=== PATIENT | female | born 1990 | race Caucasian/White ===

== ENCOUNTER → 2017-09-07 16:36 | Outpatient (CLI) | payer OTHER, SELFPAY ==
[2017-09-07 17:33] LABS: Urine Amphetamines Negative (Negative); Urine Barbiturates Negative (Negative); Urine Benzodiazepines Negative (Negative); Urine Cocaine Negative (Negative); Urine MDMA Negative (Negative); Urine Methadone Negative (Negative); Urine Methamphetamines Negative (Negative); Urine Morphine/Opi cutoff 2000 Positive (Negative); Urine Oxycodone Negative (Negative); Urine Phencyclidine Negative (Negative); Urine Tetrahydrocannabinol Negative (Negative); Urine Tricyclic Antidepressant Negative (Negative)
[2017-09-07 18:05] LABS: Add Manual Diff / Slide Review NO; Basophils Percent Auto 0.6 % (0-2); Eosinophils Percent Auto 0.7 % (2-4); Hematocrit 37.3 % (36-46); Hemoglobin 12.8 g/dL (12.0-16.0); Lymphocytes Percent Auto 20.2 % (25-40); Mean Corpuscular HGB Conc 34.3 % (30-36); Mean Corpuscular Hemoglobin 32.1 PG (26-34); Mean Corpuscular Volume 93.5 fL (80-100); Monocytes Percent Auto 7.1 % (3-14); Neutrophils Absolute Auto 8800 /uL (3000-5900); Neutrophils Percent Auto 71.4 % (50-75); Platelet Count 314 X10^3/uL (150-400); Red Blood Cell Count 3.99 X10^6/uL (4.0-5.2); Red Cell Distribution Width 12.7 % (11.6-14.8); White Blood Cell Count 12.4 X10^3/uL (4.5-11.0)
[2017-09-07 18:16] LABS: Free T4, Direct Thyroxine 1.17 ng/dL (0.78-2.19)
[2017-09-07 18:29] LABS: Thyroid Stimulating Hormone 0.78 uIU/mL (0.47-4.68)
[2017-09-07 18:31] LABS: Hepatitis B Surface Antigen NEGATIVE s/c (NEGATIVE)
[2017-09-13 12:20] LABS: Rapid Plasma Reagin NON-REACTIVE
== END ==
PROVIDERS: PCP Physician Assistant; Visit Provider Obstetrics & Gynecology
DX: Z34.91 Encounter for supervision of normal pregnancy, unspecified, first trimester (principal); E04.9 Nontoxic goiter, unspecified
CPT/HCPCS: 36415; 80055; 80305; 84439; 84443; 86787; 86850; 86900; 86901

== ENCOUNTER → 2017-09-09 10:36 | Outpatient (CLI) | payer OTHER, SELFPAY ==
[2017-09-13 17:15] LABS: HIV 1 and 2 Antibody NEGATIVE (NEGATIVE); Hep C Virus Ab w/Reflex Quant NEGATIVE s/c (NEGATIVE)
== END ==
PROVIDERS: PCP Physician Assistant; Visit Provider Obstetrics & Gynecology
DX: Z34.91 Encounter for supervision of normal pregnancy, unspecified, first trimester (principal)
CPT/HCPCS: 80361; 86703; 86803

== ENCOUNTER → 2017-11-14 14:58 | Outpatient (CLI) | payer OTHER, SELFPAY ==
--- NOTE | 2017-11-14 15:00 | DI.US.S_ITS ---
PROCEDURE: US OB >= 14 WEEKS FETUS INDICATIONS: Anatomy Survey OUTSIDE/PRIOR DATING DATA: Last menstrual period (LMP): 06/23/2017. LMP-based estimated date of delivery (TIFFANIE): 03/30/2018. First dating scan (date and location): 09/07/2017. Estimated date of delivery (TIFFANIE) from first dating scan: 04/05/2018. TECHNIQUE: Real-time scanning was performed of the fetus, with image documentation and biometric measurements. Endovaginal scanning: Not required COMPARISON: [facility], , OB >= 14 WEEKS FETUS, 10/05/2017, 17:04. FINDINGS: General: A single living intrauterine gestation is present. Presentation: Vertex. Placenta: Placental position is right anterior, without previa. Amniotic fluid index: 14.7 cm, normal range is 5-24 cm. heart rate: 131 beats per minute. Maternal cervical canal: 3.9 cm long. Normal lower limit is 2.5 cm. biometrics: Biparietal diameter: 20.0 weeks Head circumference: 19 weeks 4 days Abdominal circumference: 19 weeks 4 days Femur length: 19 weeks 6 days Estimated gestational age from initial scan: 19 weeks 5 days Composite gestational age from present scan: 19 weeks 5 days, normal growth Estimated weight and percentile: 311 g the 48th percentile Measurement variability for biometric dating: +/- 7 days from 14 weeks to 15 weeks 6 days gestation, +/- 10 days from 16 weeks to 21 weeks 6 days gestation, +/- 2 weeks from 22 weeks to 27 weeks 6 days gestation, +/- 3 weeks for 28 weeks gestation or later. weight reference: 4500 g or EFW >90/95% is considered macrosomia or large for gestational age. EFW <10% is small for gestational age. EFW 5% or less is considered intra-uterine growth restriction. Anatomic survey: Neuro: Ventricles are non-dilated at less than 10 mm. Cisterna magna is normal at 3-11 mm. Cerebellum is normal in size and morphology. Nuchal skin fold: Normal at less than 6 mm between 14-21 weeks gestational age. Face: Nose and lips, facial profile are normal. Spine: No evidence for spina bifida. Heart: 4-chambered heart is present, with normal ventricular outflow tracts. Diaphragm: Diaphragm is intact. Stomach: Left-sided stomach is present. Kidneys: No hydronephrosis. Normal is less than 5 mm in 2nd trimester, less than 7 mm in 3rd trimester. Cord: 3-vessel cord has orthotopic insertion. Bladder: Normal in size. Extremities: All 4 extremities identified. IMPRESSION: Single, live intrauterine gestation in Vertex lie showing composite gestational age of 19 weeks 5 days, normal growth and normal anatomy. Dictated by: Boby Gilliland M.D. on 11/14/2017 at 16:15 Approved by: Boby Gilliland M.D. on 11/14/2017 at 16:18
== END ==
PROVIDERS: PCP Physician Assistant; Visit Provider Obstetrics & Gynecology
DX: Z34.02 Encounter for supervision of normal first pregnancy, second trimester (principal); Z3A.19 19 weeks gestation of pregnancy
CPT/HCPCS: 76811

== ENCOUNTER → 2017-12-26 15:45 | Outpatient (CLI) | payer OTHER, SELFPAY ==
[2017-12-26 17:13] LABS: Hematocrit 33.2 % (36-46); Hemoglobin 11.1 g/dL (12.0-16.0)
[2017-12-26 17:41] LABS: GTT (PREG) 1 Hour PP 50gm Dose 140 mg/dL (76-139)
== END ==
PROVIDERS: PCP Physician Assistant; Visit Provider Obstetrics & Gynecology
DX: Z34.02 Encounter for supervision of normal first pregnancy, second trimester (principal)
CPT/HCPCS: 36415; 82950; 85014; 85018

== ENCOUNTER 2018-02-06 09:29 | Observation (INO) | payer OTHER, SELFPAY ==
[2018-02-06 11:51] LABS: Fetal Fibronectin Negative
[2018-02-06 12:08] LABS: Appearance Urine UA CLOUDY; Bilirubin Urine UA NEGATIVE (NEGATIVE); Color Urine UA YELLOW; Glucose Urine UA NEGATIVE (Normal); Ketones Urine UA NEGATIVE (NEGATIVE); Leukocyte Esterase Urine UA NEGATIVE (NEGATIVE); Nitrite Urine UA NEGATIVE (Negative); Occult Blood Urine UA NEGATIVE (Negative); Protein Urine UA NEGATIVE (Negative); Urobilinogen Urine UA 0.2 E.U./dL (0.2)
== END 2018-02-06 12:20 | disposition home or self-care (01) ==
PROVIDERS: Admitting Provider Obstetrics & Gynecology; PCP Physician Assistant; Visit Provider Obstetrics & Gynecology
DX: Z34.83 Encounter for supervision of other normal pregnancy, third trimester (principal); Z3A.32 32 weeks gestation of pregnancy
CPT/HCPCS: 59025; 59050; 81003; 82731; G0378; G0379

== ENCOUNTER → 2018-03-01 17:05 | Outpatient (CLI) | payer OTHER, SELFPAY ==
[2018-03-02 14:49] LABS: Strep Grp B PCR NEG for Grp B Strep
== END ==
PROVIDERS: PCP Physician Assistant; Visit Provider Obstetrics & Gynecology
DX: Z34.83 Encounter for supervision of other normal pregnancy, third trimester (principal); Z3A.35 35 weeks gestation of pregnancy
CPT/HCPCS: 87653

== ENCOUNTER 2018-03-10 12:20 | Outpatient (CLI) | payer OTHER, SELFPAY | END 2018-03-10 14:05 | disposition home or self-care (01) | LOC: LABOR 13:02 → OB 03-14 08:50 | PROVIDERS: PCP Physician Assistant; Visit Provider Obstetrics & Gynecology | DX: Z34.83 Encounter for supervision of other normal pregnancy, third trimester (principal); Z3A.32 32 weeks gestation of pregnancy | CPT/HCPCS: 59025; 59050; G0378; G0379 ==

== ENCOUNTER 2018-04-01 13:09 | Observation (INO) | payer OTHER, SELFPAY ==
--- NOTE | 2018-04-01 14:08 | DI.US.S_ITS ---
PROCEDURE: US OB LIMITED INDICATIONS: ANA OUTSIDE/PRIOR DATING DATA: Last menstrual period (LMP): 06/23/17. LMP-based estimated date of delivery (TIFFANIE): 03/30/18. First dating scan (date and location): 09/07/17. Estimated date of delivery (TIFFANIE) from first dating scan: 04/05/18. TECHNIQUE: Real-time scanning was performed of the fetus, with image documentation. COMPARISON: [facility], , US OB >= 14 WEEKS FETUS, 11/14/2017, 15:11. [facility], , US OB >= 14 WEEKS FETUS, 10/05/2017, 17:04. [facility], , US OB >= 14 WEEKS FETUS, 09/07/2017, 16:26. [facility], , US OB >= 14 WEEKS FETUS, 01/24/2018, 15:49. FINDINGS: A single living intrauterine gestation is present. Presentation: Vertex. Placenta: Placental position is anterior grade 3, without previa. Amniotic fluid index: 11.9 cm, normal range is 5-24 cm. heart rate: 114 beats per minute. Maternal cervical canal: Not measured cm long. Normal lower limit is 2.5 cm. Estimated gestational age from initial scan: 39 weeks 3 days. IMPRESSION: Single live intrauterine with ultrasound gestational age of 39 weeks 3 days. ANA measures 11.9 cm, corresponding to 45%. Dictated by: Aline Walton M.D. on 04/01/2018 at 15:25 Approved by: Aline Walton M.D. on 04/01/2018 at 15:27
== END 2018-04-01 15:35 | disposition home or self-care (01) ==
PROVIDERS: Admitting Provider Obstetrics & Gynecology; PCP Physician Assistant; Visit Provider Obstetrics & Gynecology
DX: Z34.83 Encounter for supervision of other normal pregnancy, third trimester (principal); Z3A.40 40 weeks gestation of pregnancy
CPT/HCPCS: 59025; 59050; 76815; 84112; G0378; G0379

== ENCOUNTER 2018-04-05 14:16 | Outpatient (CLI) | payer OTHER, SELFPAY | END 2018-04-05 15:36 | disposition home or self-care (01) | LOC: LABOR 15:17 → OB 04-12 08:37 | PROVIDERS: PCP Physician Assistant; Visit Provider Obstetrics & Gynecology | DX: O48.0 Post-term pregnancy (principal); Z3A.40 40 weeks gestation of pregnancy | CPT/HCPCS: 59025; G0378; G0379 ==

== ENCOUNTER 2018-04-07 11:56 | Observation (INO) | payer OTHER, SELFPAY | END 2018-04-07 14:52 | disposition home or self-care (01) | PROVIDERS: Admitting Provider Obstetrics & Gynecology; PCP Physician Assistant; Visit Provider Obstetrics & Gynecology | DX: O48.0 Post-term pregnancy (principal); O32.1XX0 Maternal care for breech presentation, not applicable or unspecified; Z3A.41 41 weeks gestation of pregnancy | CPT/HCPCS: 59025; 59050; G0378; G0379 ==

== ENCOUNTER 2018-04-08 13:58 | Inpatient (IN) | payer OTHER, SELFPAY ==
[2018-04-08] MEDS: LACTATED RINGERS 1,000 ML 125 ML IV (14:10)
--- NOTE | 2018-04-08 15:00 | P.HPOB_ITS ---
OB HPI Date/Time Date of admission: 04/08/18 Date Patient Seen: 04/08/18 Time Patient Seen: 14:58 History of Present Condition Chief complaint: Observation : 2 Para: 0 Estimated Date of Delivery: 03/30/18 Estimated Gestational Age (weeks): 41+ 2 Narrative: Aracely Ortiz is a 27 year old female 2 para 0 at 41-,2/7 weeks gestation in active labor History of Present care: good care, initiated at week # (10) and number of visits (14) Dating criteria: LMP confirmed by 1st trimester US Ultrasounds: normal 1st trimester US and normal mid trimester US Obstetrical complications: none Medical complications: none Preadmission Labs Blood type: O (+) positive -: Antibody screen: negative, GBS status: negative, HBsAG: negative, HIV: negative, HSV 1: negative, HSV 2: negative and RPR/VDLR: negative -: Chlamydia screen: not detected and Gonorrhea screen: not detected -: Rubella: immune and Varicella: immune HCT: 33.2 HCAB: negative PAP: Normal 1 hr GTT: 140 Evaluation Evaluation Baseline heart rate: 140 Variability: Moderate (11-25) monitor accelerations: Present monitor decelerations: Absent Contraction Frequency (minutes): 2 Uterine Contraction Intensity: Strong/Firm Category of Tracing: I Cervical dilation (cm): 6 Cervical effacement (%): 100 station: 0 [facility] Home Medications Medication Instructions Recorded Confirmed Type ondansetron 4 mg disintegrating 4 mg PO Q6H PRN #20 tab 18 09/07/17 Rx tablet fluconazole 150 mg tablet 150 mg PO ONCE #1 tab 12/21/17 Rx Allergies Allergy/AdvReac Type Severity Reaction Status Date / Time No Known Drug Allergies Allergy Verified 04/07/18 12:10 Exam Vital Signs (past 8 hours): Generally: Moderate distress secondary to contractions Lungs: Clear to auscultation bilaterally Cardiovascular: Regular rate and rhythm Abdomen: Soft and flat. Good bowel sounds Fundal height: 38 cm Estimated weight: 6 and 0.5 lb Extremities: Negative Homans, no edema Assessment and Plan (1) 41 weeks gestation of : Current visit: Yes Status: Acute (2) Active labor: Current visit: Yes Status: Acute Assessment: 27-year-old 2 para 0 at 41-,2/7 weeks gestation in active labor Desires an epidural Plan: Epidural Artificial rupture of membranes once comfortable Expected management to spontaneous vaginal delivery
[2018-04-08 15:10] LABS: Add Manual Diff / Slide Review NO; Basophils Percent Auto 1.1 % (0-2); Hematocrit 32.2 % (36-46); Hemoglobin 10.8 g/dL (12.0-16.0); Lymphocytes Percent Auto 13.8 % (25-40); Mean Corpuscular HGB Conc 33.5 % (30-36); Mean Corpuscular Hemoglobin 29.4 PG (26-34); Mean Corpuscular Volume 87.6 fL (80-100); Monocytes Percent Auto 4.5 % (3-14); Neutrophils Absolute Auto 10200 /uL (1500-7000); Neutrophils Percent Auto 80.6 % (50-75); Platelet Count 335 X10^3/uL (150-400); Red Blood Cell Count 3.67 X10^6/uL (4.0-5.2); Red Cell Distribution Width 14.3 % (11.6-14.8); White Blood Cell Count 12.6 X10^3/uL (4.5-11.0)
[2018-04-08] MEDS: LACTATED RINGERS 1,000 ML 100 ML IV (16:42)
[2018-04-08] MEDS: OXYTOCIN PREMIX 30 UNIT/500 ML PLAST..BAG IV (16:49)
[2018-04-08] MEDS: ONDANSETRON 4 MG/2 ML INJ IV (17:26)
[2018-04-08] MEDS: CEFAZOLIN 1 GM/50 ML FROZ.PIGGY IV (21:11)
--- NOTE | 2018-04-08 21:45 | SUR.OPER ---
Supine on Padded OR bed, head on pillow, safety belt at thigh, arms secured on padded arm boards at <90 degrees abduction. Bump under right buttock. Legs uncrossed with pillow under knees, gel pad to heels, tape over blanket to lower legs.
--- NOTE | 2018-04-08 21:49 | SUR.OPER ---
Viable female delivered at 2120. Placenta and cord blood sent with Labor and Delivery nurse.
--- NOTE | 2018-04-08 22:02 | PM.GYNOP.1 ---
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 Maternal short stature Post-op diagnosis: same Procedure: Procedures Operation Date: 04/08/18 09:00 Actual Procedures Side Surgeon p Section Mami Mata MD Indications: Term intrauterine 41 weeks Maternal short stature Cephalopelvic disproportion fair to progress Surgeon: Mami Mata Mathematics Improvement Teacher: Junito Odell Anesthesia Type: Epidural Operative Notes Closure Type: primary Specimen(s): none Applied: catheter Estimated blood loss (mL): 500 Blood products transfused: none Procedure in detail: The patient is placed supine upon the operating table in the epidural was reinforced in the standard fashion. Patient was then draped and prepared in the usual fashion. Transverse incision was then made and subcutaneous tissue incised the fascia. Fascia was incised sharp knife transversely in each direction. The median raphe was incised the midline and this was widened by blunt finger dissection. Perineum was picked up and incised and widened by blunt finger dissection. Bladder blade was set in place. Peritoneum over the lower uterine segment was picked up and incised. Bladder was taken down and bladder blade replaced. Transverse scoring incision was made across the lower uterine segment a perforating was is in was made centrally. The endometrial cavity was opened and a live-born female infant scores of nine one and nine at 5 min was delivered without difficulty. Placenta was delivered manually. Cord had three vessels. All membranes were massage from the endometrial cavity. The estimated blood loss was 500 cc. Tubes and ovaries appeared to be normal. The uterine incision was closed in imbricating fashion using two layer technique with 1. Chromic suture. No bleeding points were seen visceral peritoneum was closed with a three 0 Vicryl suture. The parietal perineum was closed with a continuous three 0 Vicryl suture. Subcutaneous tissues copiously irrigated as was the retroperitoneal space. The fascia was closed with two continuous 1. Vicryl sutures. The subcutaneous tissue was closed in two layers. 1st with interrupted three 0 Vicryl suture then with a running horizontal mattress three 0 Vicryl suture and further approximated with Steri-Strips. Complications: none Post-operative Condition: stable Disposition: PACU Plan for aftercare: Return to Labor and delivery
[2018-04-08 22:04] VITALS: BP 110/77; PULSE 103; RESP 16; TEMP 37.3; O2SAT 100
[2018-04-08 22:09] VITALS: BP 106/73; PULSE 94; RESP 16; O2SAT 100
[2018-04-08 22:15] VITALS: BP 108/78; PULSE 91; RESP 16; TEMP 36.7; O2SAT 100
[2018-04-09] MEDS: KETOROLAC 30 MG/ML VIAL IV ×4 (01:07→18:00)
[2018-04-09] MEDS: CITRIC ACID/SODIUM CITRATE 15 ML SOLUTION 30 ML PO (01:14)
[2018-04-09 05:52] LABS: Hemoglobin 7.8 g/dL (12.0-16.0)
[2018-04-09 06:01] LABS: Hematocrit 23.9 % (36-46)
[2018-04-09] MEDS: LACTATED RINGERS 1,000 ML 125 ML IV (06:28)
--- NOTE | 2018-04-09 09:37 | P.PNOB_ITS ---
Subjective - OB Interval history: Patient is a 27-year-old status post primary section for cephalopelvic disproportion and failure to progress. She continues on IV use. Feliciano is in place and draining clear urine. She has minimal vaginal bleeding. Patient comments: no complaints and pain well controlled baby status: doing well feeding status: exclusively breast feeding Narrative: Patient is doing well Date Patient Seen: 04/09/18 Time Patient Seen: 09:35 Exam Vital Signs (past 8 hours): Oxygen Delivery Method Room Air Narrative Exam Narrative: Fundus is U minus three Incision covered with a dressing but no evidence of bleeding or discharge of any kind Lochia scant Objective Labs Result Diagrams: 04/09/18 05:05 Labs: Laboratory Results - last 24 hr 04/08/18 04/08/18 04/09/18 14:50 14:50 05:05 WBC 12.6 H RBC 3.67 L Hgb 10.8 L 7.8 L Hct 32.2 L 23.9 L MCV 87.6 MCH 29.4 MCHC 33.5 RDW 14.3 Plt Count 335 Neut % (Auto) 80.6 H Lymph % (Auto) 13.8 L Peñuelas % (Auto) 4.5 Eos % (Auto) 0.0 L Baso % (Auto) 1.1 Neut # (Auto) 93354 H Blood Type O Positive Antibody Screen Negative Assessment & Plan (1) 41 weeks gestation of : Problem details: Patient approximately 12 hr post primary section doing well Anemia secondary to blood loss at surgery will receive iron therapy Plan progressive ambulation Status: Acute Current Visit: Yes (2) Active labor: Status: Acute Current Visit: Yes Time Spent With Patient Total time spent is greater than 50% in coordination of care (as documented) at patient's floor/unit and/or counseling patient: less than 15 minutes
[2018-04-09] MEDS: LANOLIN OINT 7 GM 1 APPLIC TOP (11:58)
[2018-04-09] MEDS: DOCUSATE 250 MG CAPSULE PO (12:03)
--- NOTE | 2018-04-09 12:26 | PM.PREOP ---
Pre-operative Note Interval Note Pre-op Check: Yes History & Physical exam performed today by Physician Changes: No
[2018-04-09 23:33] VITALS: BP 104/62
[2018-04-09] MEDS: OXYCODONE/ACETAMINOPHEN 5/325 TABLET 2 TAB PO (23:46)
[2018-04-09] MEDS: IBUPROFEN 600 MG TABLET PO (23:48)
[2018-04-10 06:11] VITALS: TEMP 37.1
[2018-04-10] MEDS: IBUPROFEN 600 MG TABLET PO (06:11)
[2018-04-10] MEDS: DOCUSATE 250 MG CAPSULE PO (09:34)
[2018-04-10] MEDS: OXYCODONE/ACETAMINOPHEN 5/325 TABLET 2 TAB PO (09:34)
[2018-04-10] MEDS: FERROUS GLUCONATE 324 MG TABLET PO (09:34)
[2018-04-10 10:42] VITALS: BP 114/71; PULSE 75; RESP 14; TEMP 37.2; O2SAT 99
[2018-04-10 11:02] VITALS: BP 114/71; PULSE 75; RESP 14; TEMP 37.2
== END 2018-04-10 12:05 | disposition home or self-care (01) | DRG 787 ==
PROVIDERS: Admitting Provider Obstetrics & Gynecology; PCP Physician Assistant; Visit Provider Obstetrics & Gynecology
PROC: 10D00Z1 Extraction of Products of Conception, Low, Open Approach (ICD-10-PCS; CPT 59514; principal; 2018-04-08 09:00)
DX: O33.9 Maternal care for disproportion, unspecified (principal); D62 Acute posthemorrhagic anemia; Z3A.41 41 weeks gestation of pregnancy; Z37.0 Single live birth; O62.2 Other uterine inertia
CPT/HCPCS: 01967; 01968; 36415; 59050; 59510; 59514; 85014; 85018; 85025; 86850; 86900; 86901; G0379; J1885; J2274; J2405; J2590; J3010

== ENCOUNTER → 2019-08-20 11:00 | Outpatient (CLI) | payer OTHER, SELFPAY ==
[2019-08-20 12:13] LABS: Add Manual Diff / Slide Review NO; Basophils Absolute Auto 0 /uL (0-100); Basophils Percent Auto 0.5 % (0-2); Eosinophils Absolute Auto 100 /uL (0-450); Eosinophils Percent Auto 1.1 % (2-4); Hematocrit 37.3 % (36-46); Hemoglobin 12.9 g/dL (12.0-16.0); Lymphocytes Absolute Auto 2200 /uL (1100-4500); Lymphocytes Percent Auto 22.6 % (25-40); Mean Corpuscular HGB Conc 34.7 % (30-36); Mean Corpuscular Hemoglobin 32.5 PG (26-34); Mean Corpuscular Volume 93.7 fL (80-100); Monocytes Absolute Auto 700 /uL (0-900); Monocytes Percent Auto 7.3 % (3-14); Neutrophils Absolute Auto 6700 /uL (1500-7000); Neutrophils Percent Auto 68.5 % (50-75); Platelet Count 303 X10^3/uL (150-400); Red Blood Cell Count 3.98 X10^6/uL (4.0-5.2); White Blood Cell Count 9.7 X10^3/uL (4.5-11.0)
[2019-08-20 12:29] LABS: Appearance Urine UA CLEAR; Bilirubin Urine UA NEGATIVE (NEGATIVE); Color Urine UA YELLOW; Glucose Urine UA NEGATIVE (Negative); Ketones Urine UA NEGATIVE (NEGATIVE); Leukocyte Esterase Urine UA TRACE (NEGATIVE); Nitrite Urine UA NEGATIVE (Negative); Occult Blood Urine UA NEGATIVE (Negative); Protein Urine UA NEGATIVE (Negative); Specific Gravity Urine UA 1.025 (1.000-1.035); Urobilinogen Urine UA 0.2 E.U./dL (0.2)
[2019-08-20 12:31] LABS: pH Urine UA 5.5 (4.5-8.0)
[2019-08-20 12:36] LABS: Bacteria Urine Occasional (0-1); Mucus Urine 1+ (Negative); RBC Urine 0-1/HPF (0-5/HPF); Squamous Epithelial Cell Urine 0-1 /HPF (0-5/HPF); WBC Urine 0-1/HPF (0-5/HPF)
[2019-08-20 21:45] LABS: Hepatitis B Surface Antigen NEGATIVE s/c (NEGATIVE)
[2019-08-20 21:48] LABS: HIV 1 & 2 Ab/Ag 4th Gen Combo NEGATIVE (NEGATIVE); Hep C Virus Ab w/Reflex Quant NEGATIVE s/c (NEGATIVE)
[2019-08-21 04:33] LABS: RPR Screen Non Reactive (Non Reactive)
[2019-08-21 05:08] LABS: Varicella IgG Antibody 583 index (Immune >165)
[2019-08-24 08:08] LABS: Chlamydia trachomatis Negative (Negative); Mycoplasma genitalium Negative (Negative); Neisseria gonorrhoeae Negative (Negative)
== END ==
PROVIDERS: PCP Physician Assistant; Referring Provider Obstetrics & Gynecology; Visit Provider Obstetrics & Gynecology
DX: Z34.81 Encounter for supervision of other normal pregnancy, first trimester (principal); Z11.3 Encounter for screening for infections with a predominantly sexual mode of transmission
CPT/HCPCS: 36415; 80055; 81003; 81015; 86787; 86803; 86850; 86900; 86901; 87086; 87389; 87491; 87591

== ENCOUNTER → 2019-10-15 16:23 | Outpatient (CLI) | payer OTHER, SELFPAY ==
[2019-10-17 20:43] LABS: AFP, Serum 45.9 ng/mL (.); Estriol, Free 1.95 ng/mL (.); Inhibin A, Dimeric 225.51 pg/mL (.); Inhibin A, MoM 0.99 (.); Maternal Ethnicity Caucasian (.); Maternal Weight 96 lbs (.); Number of Fetuses No (.); OSBR Risk 1 IN 10000 (.); Results Report (.); Test Results *Screen Negative* (.); hCG, MoM 0.53 (.); hCG, Serum 30847 mIU/mL (.)
== END ==
PROVIDERS: Referring Provider Obstetrics & Gynecology; Visit Provider Obstetrics & Gynecology
DX: Z34.82 Encounter for supervision of other normal pregnancy, second trimester (principal); Z3A.16 16 weeks gestation of pregnancy
CPT/HCPCS: 36415; 82105; 82677; 84702; 86336

== ENCOUNTER → 2019-10-23 14:37 | Outpatient (CLI) | payer OTHER, SELFPAY ==
[2019-10-26 13:36] LABS: COVID19 Sendout Not Detected (Not Detected)
== END ==
PROVIDERS: Visit Provider Physician Assistant
DX: Z20.828 Contact with and (suspected) exposure to other viral communicable diseases (principal)
CPT/HCPCS: 87635

== ENCOUNTER → 2019-11-08 15:47 | Outpatient (CLI) | payer OTHER, SELFPAY ==
--- NOTE | 2019-11-08 15:48 | DI.US.S_ITS ---
PROCEDURE: US OB >= 14 WEEKS FETUS INDICATIONS: 20 WEEK ANATOMY SCAN OUTSIDE/PRIOR DATING DATA: Last menstrual period (LMP): 06/24/19. LMP-based estimated date of delivery (TIFFANIE): 03/30/20 . First dating scan (date and location): 08/20/19 . Estimated date of delivery (TIFFANIE) from first dating scan: 03/30/20 . TECHNIQUE: Real-time scanning was performed of the fetus, with image documentation and biometric measurements. Endovaginal scanning: Not performed COMPARISON: Ultrasound dated 08/20/19 and 08/13/19 FINDINGS: General: A single living intrauterine gestation is present. Presentation: Vertex. Placenta: Placental position is anterior , without previa. Amniotic fluid index: 11.9 cm, normal range is 5-24 cm. heart rate: 145 beats per minute. Maternal cervical canal: 5.6 cm long. Normal lower limit is 2.5 cm. biometrics: Biparietal diameter: 4.7 cm, 20 weeks 3 days Head circumference: 18.2 cm, 20 weeks 4 days Abdominal circumference: 15.4 cm, 20 weeks 4 days Femur length: 3.4 cm, 20 weeks 5 days Estimated gestational age from initial scan: 19 weeks 4 days Composite gestational age from present scan: 20 weeks 4 days Estimated weight and percentile: 368 g, 95th percentile Measurement variability for biometric dating: +/- 7 days from 14 weeks to 15 weeks 6 days gestation, +/- 10 days from 16 weeks to 21 weeks 6 days gestation, +/- 2 weeks from 22 weeks to 27 weeks 6 days gestation, +/- 3 weeks for 28 weeks gestation or later. weight reference: 4500 g or EFW >90/95% is considered macrosomia or large for gestational age. EFW <10% is small for gestational age. EFW 5% or less is considered intra-uterine growth restriction. Anatomic survey: Neuro: Ventricles are non-dilated at less than 10 mm. Cisterna magna is normal at 3-11 mm. Cerebellum is normal in size and morphology. Nuchal skin fold: Normal at less than 6 mm between 14-21 weeks gestational age. Face: Nose and lips, facial profile are normal. Spine: No evidence for spina bifida. Heart: 4-chambered heart is present, with normal ventricular outflow tracts. Diaphragm: Diaphragm is intact. Stomach: Left-sided stomach is present. Kidneys: No hydronephrosis. Normal is less than 5 mm in 2nd trimester, less than 7 mm in 3rd trimester. Cord: 3-vessel cord has orthotopic insertion. Bladder: Normal in size. Extremities: All 4 extremities identified. IMPRESSION: Single living intrauterine fetus in vertex presentation with estimated weight at 95th percentile. If there is clinical concern for developing macrosomia, follow-up ultrasound for growth in 3-4 weeks could be performed. Normal anatomic survey Dictated by: Charly Meza M.D. on 11/08/2019 at 16:58 Approved by: Charly Meza M.D. on 11/08/2019 at 17:00
== END ==
PROVIDERS: Referring Provider Obstetrics & Gynecology; Visit Provider Obstetrics & Gynecology
DX: Z34.82 Encounter for supervision of other normal pregnancy, second trimester (principal); Z3A.20 20 weeks gestation of pregnancy
CPT/HCPCS: 76811

== ENCOUNTER → 2020-01-05 10:27 | Outpatient (CLI) | payer OTHER, SELFPAY ==
[2020-01-05 12:52] LABS: Hematocrit 32.5 % (36-46); Hemoglobin 11.1 g/dL (12.0-16.0)
[2020-01-05 13:16] LABS: GTT (PREG) 1 Hour PP 50gm Dose 139 mg/dL (76-139)
== END ==
PROVIDERS: Referring Provider Obstetrics & Gynecology; Visit Provider Obstetrics & Gynecology
DX: Z34.82 Encounter for supervision of other normal pregnancy, second trimester (principal); Z3A.26 26 weeks gestation of pregnancy
CPT/HCPCS: 36415; 82950; 85014; 85018

== ENCOUNTER → 2020-02-20 19:29 | Outpatient (ROUT) | payer OTHER, SELFPAY ==
[2020-02-20 21:17] LABS: Urine N gonorrhoeae NOT DETECTED
[2020-02-20 21:19] LABS: Urine Chlamydia NOT DETECTED
== END ==
PROVIDERS: PCP Obstetrics & Gynecology; Visit Provider Obstetrics & Gynecology
DX: Z34.83 Encounter for supervision of other normal pregnancy, third trimester (principal); Z3A.34 34 weeks gestation of pregnancy
CPT/HCPCS: 87491; 87591

== ENCOUNTER → 2020-03-05 15:42 | Outpatient (CLI) | payer OTHER, SELFPAY ==
[2020-03-06 11:39] LABS: Strep Grp B PCR NEG for Grp B Strep
== END ==
PROVIDERS: Visit Provider Obstetrics & Gynecology
DX: Z34.83 Encounter for supervision of other normal pregnancy, third trimester (principal); Z3A.36 36 weeks gestation of pregnancy
CPT/HCPCS: 87653

== ENCOUNTER 2020-03-20 13:30 | Inpatient (IN) | payer OTHER, MEDICAID, SELFPAY ==
[2020-03-20] VITALS (9 sets, daily range): BP systolic 94–121; BP diastolic 54–73; PULSE 15–63; RESP 10–99; TEMP 36.1–36.9; O2SAT 100
[2020-03-20 14:50] LABS: Add Manual Diff / Slide Review NO; Basophils Absolute Auto 100 /uL (0-100); Basophils Percent Auto 1.1 % (0-2); Eosinophils Absolute Auto 100 /uL (0-450); Eosinophils Percent Auto 0.7 % (2-4); Hematocrit 32.4 % (36-46); Hemoglobin 10.8 g/dL (12.0-16.0); Lymphocytes Absolute Auto 2800 /uL (1100-4500); Mean Corpuscular HGB Conc 33.2 % (30-36); Mean Corpuscular Hemoglobin 28.1 PG (26-34); Mean Corpuscular Volume 84.5 fL (80-100); Monocytes Absolute Auto 700 /uL (0-900); Monocytes Percent Auto 6.4 % (3-14); Neutrophils Absolute Auto 7100 /uL (1500-7000); Neutrophils Percent Auto 65.8 % (50-75); Platelet Count 303 X10^3/uL (150-400); Red Blood Cell Count 3.83 X10^6/uL (4.0-5.2); Red Cell Distribution Width 14.3 % (11.6-14.8); White Blood Cell Count 10.8 X10^3/uL (4.5-11.0)
[2020-03-20 15:15] LABS: COVID19 -Nasal RAPID Negative (Negative)
[2020-03-20] MEDS: ACETAMINOPHEN 325 MG TABLET 975 MG PO (15:40)
[2020-03-20] MEDS: CITRIC ACID/SODIUM CITRATE 15 ML SOLUTION 30 ML PO (15:41)
[2020-03-20] MEDS: CEFAZOLIN 2 GM/100 ML FROZ.PIGGY IV (16:26)
--- NOTE | 2020-03-20 16:29 | SUR.OPER ---
Addendum entered by Kaitlin Grady R.N. 03/20/20 17:03: tape over lower legs during procedure Original Note: Supine on padded OR bed, head on pillow, arms secured on padded arm boards at <90 degrees abduction, legs uncrossed, safety belt at thigh.
--- NOTE | 2020-03-20 16:50 | SUR.OPER ---
Viable baby boy born at 1633. Cord blood X2 vials and placenta given to OB RN.
--- NOTE | 2020-03-20 17:26 | PM.PREOP ---
Pre-operative Note COVID-19 COVID-19 status: Negative Result date/Date tested (Pos, Neg/Pending): 03/20/20 Interval Note History & Physical reviewed/Exam performed by Physician: Yes Changes to H&P: No H&P completed within 30 days and has changed as indicated here:: 03/20/20
--- NOTE | 2020-03-20 17:33 | P.OP_ITS ---
Operative Date/Time/Diagnoses Date of procedure: 03/20/20 Time of procedure: 17:33 Pre-op diagnosis: 38 weeks gestation Previous C section Post-op diagnosis: same Procedure & Clinicians Procedure: Procedures Operation Date: 03/20/20 15:45 Actual Procedures Side Surgeon p Section Mami Maat MD Indications: 38 weeks gestation Previous C section Surgeon: Mami Mata Mobile Application Development Lead: Haley Francois Anesthesia Type: Spinal (With Duramorph) Operative Notes Findings: Live male Normal uterus, tubes and ovaries Closure Type: primary Specimen(s): other (Cord bloods, placenta) Applied: catheter (To continuous drainage) Estimated blood loss (mL): 350 Blood products transfused: none Procedure in detail: The patient was taken to the operating room where she was placed in the seated position. Spinal anesthesia with Duramorph was administered. The patient was then placed in the dorsal supine position with a leftward tilt. She was prepped and draped in the usual sterile fashion. A timeout was performed. After spinal analgesia was found to be adequate, a Pfannenstiel skin incision was made through the previous incision and carried through to the underlying layer fascia. The web marketing assistant clamped and cauterized bleeders in the subcutaneous layer. The web marketing assistant retracted so that the fascia could be visualized. The fascia was nicked in the midline, and the incision extended bilaterally with the Lee scissors. The web marketing assistant cut the contralateral side of the fascia. The superior aspect of the fascial incision was grasped with a Tioga clamps and elevated elevated by the web marketing assistant, and the underlying rectus muscles dissected off sharply and bluntly. Attention was then turned to the inferior aspect of this incision which in a similar fashion was grasped with a Tioga clamps, elevated by the web marketing assistant, and the underlying rectus muscles dissected off sharply and bluntly. The rectus muscles were in the midline. The peritoneum was identified, grasped between 2 hemostats, and entered sharply with the Metzenbaum scissors. This incision was extended superiorly and inferiorly with good visualization of the bladder, with the web marketing assistant retracting the abdominal wall. The bladder blade was inserted. The vesicouterine peritoneum was identified, grasped with the pickup, and entered sharply with the Metzenbaum scissors. This incision was extended bilaterally and the web marketing assistant retracted the abdominal wall, and the bladder flap was created digitally. The bladder blade was reinserted. The lower uterine segment was incised in a transverse fashion with the scalpel with the web marketing assistant suctioning at the incision site. Upon entering the amniotic sac there was moderate amount of clear amniotic fluid. The infant's head was delivered with the web marketing assistant giving fundal pressure to assist in delivery of the baby. The nose and mouth were suctioned with bulb suction by the web marketing assistant. The remainder of the body delivered without difficulty. The cord was double clamped and cut by the web marketing assistant. The was handed off to waiting RN and RT. The placenta was delivered manually by the web marketing assistant. The uterus was cleared of all clots and debris. The uterine incision was repaired with #1 chromic in a running interlocking fashion, and a second layer the same suture was used for an imbricating layer. Hemostasis was achieved. The tubes and ovaries were examined and were found to be normal. The gutters were cleared of all clots and debris. The bladder flap was reapproximated using 2-0 Vicryl in a running fashion with the web marketing assistant retracting. The parietal peritoneum was closed using 2-0 Vicryl in a running fashion. The fascia was reapproximated using 0 Vicryl in a running fashion. The web marketing assistant closed the contralateral side of the fascia. The subcutaneous layer was copiously irrigated with warm normal saline. 5 simple interrupted sutures of 3-0 Vicryl were placed to reapproximate the subcutaneous layer. The skin was closed with 4-0 Biosyn in a subcuticular fashion. Steri-Strips were placed. An Aquacell dressing was placed. The uterus was expressed of a small amount of old blood. Sponge, lap, and instrument counts were correct x-2. The patient tolerated the procedure well, and was taken to PACU in stable condition. Complications: none Post-operative Condition: stable Disposition: PACU Plan for aftercare: To Center after Recovery
[2020-03-20] MEDS: LACTATED RINGERS 1,000 ML 100 ML IV (21:17)
[2020-03-20] MEDS: KETOROLAC 30 MG/ML VIAL IV (22:57)
[2020-03-21] MEDS: KETOROLAC 30 MG/ML VIAL IV ×2 (06:00→12:28)
[2020-03-21 06:44] LABS: Hematocrit 28.1 % (36-46); Hemoglobin 9.1 g/dL (12.0-16.0)
[2020-03-21] MEDS: PRENATAL VIT,CALC/IRON/FOLIC 1 TABLET 1 TAB PO (09:07)
[2020-03-21] MEDS: DOCUSATE 250 MG CAPSULE PO (09:08)
--- NOTE | 2020-03-21 14:57 | PM.OBDS.1 ---
Discharge Providers Provider Date of admission: 03/20/20 13:30 Discharge Date: 03/21/20 Primary care physician: Doctor Divine MD Consults: 03/20/20 18:23 Consult to Data Management Specialist Routine Comment: Discharge provider: Mami Mata MD Summary Hospital Course Date Patient Seen: 03/21/20 Time Patient Seen: 13:00 Procedures: Repeat low-transverse section Spinal anesthesia Hospital Course: Patient is a 29-year-old 3 para 2 who presented in labor at 38 weeks gestation with a history of a previous section. She underwent a repeat low-transverse section without complication. On postop day # 1, patient was tolerating a diet, ambulating, nursing going well, and pain well controlled. She requested discharge. Peripartum Data Infant Delivery Method: Section (Repeat) Laceration Description: None Episiotomy description: None Procedures: Repeat low-transverse section Spinal anesthesia complications: none 1: Gender: Female Disposition of : home Status at Discharge Cognitive/behavioral status at discharge: oriented Functional status at discharge: independent ambulation Overall status at discharge: patient is progressing back to baseline Time Spent with Patient Time attestation: Total time spent providing and/or coordinating discharge services: Time spent: Less than 30 minutes Objective Labs Result Diagrams: 03/21/20 05:55 Labs: Laboratory Results - last 24 hr 03/20/20 03/20/20 03/21/20 14:40 14:40 05:55 Hgb 9.1 L Hct 28.1 L COVID-19 PCR Negative Blood Type O Positive Antibody Screen Negative Exam Vital Signs (past 8 hours): Oxygen Delivery Method Room Air Discharge Plan Discharge Plan Patient Disposition: Home Provider Discharge Comment: Call with fever, chills, redness or drainage around the incision, or bleeding vaginally more than a pad in an hour Ibuprofen 600 mg every 6 hours as needed Continue vitamins Push fluids Discharge orders & Medications Prescriptions: Continued prenat.vits,jyothi,[id number] Tablet 1 tab PO DAILY RF: 0 Follow up/Referrals: Mami Mata MD [Physician] - (Follow up with Dr. Mata on 03/27 at 2:15pm for dressing removal. Follow up with Dr. Mata on 05/01 at 3:00pm for check.) Diet/Activity/Treatments Diet: Regular Activity: No heavy lifting, nothing more than the baby No intercourse until bleeding stops Skin/Wound/Dressing Care Report to your healthcare provider any signs of infection, such as:: chills, fever, increased pain, unusual drainage and unusual redness Dressing: Do not remove Visit Report/Discharge Packet Instructions: DI for Stand Alone Forms: Discharge: Care Discharge Data Primary Care Provider: Miscellaneous,Doctor
== END 2020-03-21 15:20 | disposition home or self-care (01) | DRG 540 ==
PROVIDERS: Admitting Provider Obstetrics & Gynecology; Referring Provider Obstetrics & Gynecology; Visit Provider Obstetrics & Gynecology
PROC: 10D00Z1 Extraction of Products of Conception, Low, Open Approach (ICD-10-PCS; CPT 59514; principal; 2020-03-20 15:45)
DX: O34.211 Maternal care for low transverse scar from previous cesarean delivery (principal); Z3A.38 38 weeks gestation of pregnancy; Z37.0 Single live birth; Z11.59 Encounter for screening for other viral diseases
CPT/HCPCS: 36415; 59025; 59050; 59514; 85014; 85018; 85025; 86850; 86900; 86901; 87635; G0379; J0690; J1885; J2274; J2405; J2590

== ENCOUNTER 2020-11-01 10:35 | Emergency (ER) | payer OTHER, SELFPAY ==
[2020-11-01 10:43] VITALS: BP 128/81; PULSE 61; RESP 18; TEMP 36.9; O2SAT 98; BMI 20.9
--- NOTE | 2020-11-01 10:52 | ED.ANIMALBIT ---
HPI - Animal Bite General Chief Complaint: Animal Bite Stated Complaint: infected dog bite Time Seen by Provider: 11/01/20 10:49 Source: patient Mode of arrival: Ambulatory Limitations: no limitations History of Present Illness HPI narrative: Patient is a 30-year-old female presents with left hand dog bite. She said it happened 3 days ago. It was her dog or seems to be food aggression with another dog. She was seen evaluated at [facility] she had sutures placed started on Augmentin and given hydrocodone for pain. He states yesterday she had increasing redness and she had gross part pus and drainage from where the sutures were. She says the pain and swelling of actually gone down today she is able to connect fingers that she has not been able to connect before. She has no redness going up her arm or into her fingertips it remains isolated to the dorsal side of her hand. She said she had x-ray during her initial exam it was negative. She has been keeping it clean and dry with soap and water irrigating the pus out. Initially seen at walk-in clinic today and sent to the ED for further evaluation. She is right-hand dominant Related Data Home Medications Medication Instructions Recorded Confirmed prenat.vits,jyothi,[id number] 1 tab PO DAILY 08/20/19 11/01/20 Allergies Allergy/AdvReac Type Severity Reaction Status Date / Time adhesive tape Allergy rash, Verified 11/01/20 10:43 itching, hives Review of Systems Review of Systems Narrative: GENERAL: Denies chills,fever HEENT: Denies throat pain RESPIRATORY: Denies dyspnea, cough, wheezing CARDIOVASCULAR: Denies chest pain, palpitations GASTROINTESTINAL: Denies nausea, vomiting MUSCULOSKELETAL: Denies extremity pain, injury SKIN: See HPI NEUROLOGIC: Denies weakness, dizziness, headache, numbness 8 point review of systems is negative except for those stated above and HPI Patient History Medical History Asthma Bilateral patent pressure equalization (PE) tubes Broken arms Depression GERD (gastroesophageal reflux disease) H/O complications due to general anesthesia Heart palpitations Migraine PTSD (post-traumatic stress disorder) Seasonal allergic rhinitis UTI (urinary tract infection) Surgical History History of delivery affecting S/P section (04/08/18) [place] teeth removed Family History Mother Hypertension Depression Skin cancer Grandmother Hypertension Depression Grandfather Diabetes mellitus Hypertension Skin cancer Father Hypertension Grandfather Alcoholic Grandmother Migraines Depression Family/Other Skin cancer Family/Other Colon cancer Sister Depression Anxiety PTSD (post-traumatic stress disorder) Irregular heart beat Brother Anxiety Depression PTSD (post-traumatic stress disorder) Sister Acid reflux Anxiety Depression PTSD (post-traumatic stress disorder) Anemia Social History marital status: unmarried,single household members: significant other pets and animals: Yes (X 1 dog) education level: college occupational status: employed current occupational exposures/hazards: No Previous occupational history: Regional Trainer special teresa needs: No Smoking Status: Never smoker second hand exposure: Yes (FOB Smokes) alcohol intake: former substance use type: former substance user, marijuana and crack/cocaine Smoking Status: Never smoker alcohol intake frequency: holidays/special occasions only Substance Use Type: marijuana Exam Initial Vital Signs Initial Vital Signs: Vital Signs Temperature 98.5 F 11/01/20 10:43 Pulse Rate 61 11/01/20 10:43 Respiratory Rate 18 11/01/20 10:43 Blood Pressure 128/81 11/01/20 10:43 Pulse Oximetry 98 11/01/20 10:43 GENERAL: Well-appearing, well-nourished and in no acute distress. CARDIOVASCULAR: peripheral pulses in tact, cap refill <2 sec RESPIRATORY: No respiratory distress, speaks in full sentences without difficulty EXTREMITIES: Normal range of motion, no clubbing or edema. Neurovascularly intact Moving fingers easily cap refill less than 2 seconds NEUROLOGICAL: Cranial nerves II through XII grossly intact. Normal gait and speech. SKIN: Left hand dorsal side she [address] skin actually is good approximation there was no gross pus around it although she says that it was as previously. No streaking. No erythema that involves fingers able to flex and extend all fingers Course Vital Signs Vital signs: Vital Signs - 8 hr 11/01/20 10:43 Temperature 98.5 F Pulse Rate 61 Respiratory Rate 18 Blood Pressure 128/81 Pulse Oximetry 98 MDM - Animal Bite MDM Narrative Medical decision making narrative: Patient reports her gross pus from site of 2 sutures. I do think that she probably had some drainage from eye at I removed the 2 sutures. She is overall clinically improving. Able to move fingers that she was not able to improved pain has improved even since yesterday. She is afebrile localized erythema. At this time I think she needs to continue her antibiotics. I have discussed warning signs with her and when to return to the ED. This time she agrees and understands the plan. Discharge Plan Departure Patient Disposition: Home Clinical Impression: Dog bite Instructions: DI for Dog Bite Activity Restrictions/Additional Instructions: *You have been diagnosed with dog bite left hand *What to do: At this time sutures have been removed. You are having improvement. At this time I think you just give longer on antibiotics. Elevate arm, ice 20-30 minutes at a time *Continue to take medications as directed Continue medication as prescribed Motrin 800 mg every 8 hours if needed for [id number] pain *Follow up with your primary care provider in 2-3 days *Return to ER if you should have inability to move fingers, redness going to fingers or up into arm. Fever, increased drainage or any new, worsening or concerning symptoms Prescriptions: No Action prenat.vits,jyothi,[id number] Tablet 1 tab PO DAILY RF: 0 Referrals: Miscellaneous,Doctor, [Primary Care Provider] -
== END 2020-11-01 11:15 | disposition home or self-care (01) ==
PROVIDERS: Emergency Provider Emergency Medicine
DX: S61.452A Open bite of left hand, initial encounter (principal); W54.0XXA Bitten by dog, initial encounter
CPT/HCPCS: 99281

== ENCOUNTER → 2022-05-04 13:21 | Outpatient (CLI) | payer OTHER, SELFPAY | PROVIDERS: Visit Provider Registered Nurse | DX: J02.9 Acute pharyngitis, unspecified (principal) | CPT/HCPCS: 87070 ==

== ENCOUNTER → 2023-05-10 08:57 | Outpatient (CLI) | payer OTHER, SELFPAY ==
--- NOTE | 2023-05-10 08:58 | DI.RAD.S_ITS ---
PROCEDURE: XR HIP W PEL IF DONE GLEN MIN 4V INDICATIONS: Hip pain TECHNIQUE: AP pelvis with lateral view(s) of the bilateral hip(s). COMPARISON: None. FINDINGS: Bones: No fractures or dislocations. Pelvic ring appears intact. No suspicious bony lesions. Soft tissues: The visualized bowel gas pattern is normal. No suspicious soft tissue calcifications. IMPRESSION: No acute bony abnormality. Dictated by: Kevin Mims M.D. on 05/10/2023 at 10:40 Approved by: Kevin Mims M.D. on 05/10/2023 at 10:41
[2023-05-10 09:49] LABS: Add Manual Diff / Slide Review NO; Basophils Absolute Auto 100 /uL (0-100); Basophils Percent Auto 1.4 % (0-2); Eosinophils Absolute Auto 100 /uL (0-450); Hematocrit 39.9 % (36-46); Hemoglobin 13.5 g/dL (12.0-16.0); Lymphocytes Absolute Auto 2300 /uL (1100-4500); Lymphocytes Percent Auto 38.1 % (25-40); Mean Corpuscular HGB Conc 33.9 % (30-36); Mean Corpuscular Hemoglobin 30.9 PG (26-34); Mean Corpuscular Volume 91.3 fL (80-100); Monocytes Absolute Auto 400 /uL (0-900); Monocytes Percent Auto 6.6 % (3-14); Neutrophils Absolute Auto 3100 /uL (1500-7000); Neutrophils Percent Auto 51.9 % (50-75); Platelet Count 295 X10^3/uL (150-400); Red Blood Cell Count 4.37 X10^6/uL (4.0-5.2); White Blood Cell Count 6.1 X10^3/uL (4.5-11.0)
[2023-05-10 10:12] LABS: Alanine Aminotransferase 20 IU/L (<35); Albumin 4.2 g/dL (3.5-5.0); Albumin Globulin Ratio 1.5 (1.0-2.8); Alkaline Phosphatase 47 U/L (38-126); Aspartate Aminotransferase 18 IU/L (14-36); BUN Creatinine Ratio 16.9 (6-22); Bilirubin Total 0.6 mg/dL (0.2-1.3); Blood Urea Nitrogen 11 mg/dL (7-17); C-Reactive Protein Quant < 0.5 mg/dL (<1.0); Calcium 9.6 mg/dL (8.4-10.2); Carbon Dioxide 26 mmol/L (22-32); Chloride 103 mmol/L (98-107); Estimated Glomerular Filt Rate > 60 mL/min (>60); Globulin 2.8 g/dL (1.7-4.1); Glucose 88 mg/dL (70-100); HEMOLYSIS < 15 (0-50); Potassium 4.3 mmol/L (3.4-5.1); Sodium 137 mmol/L (137-145)
[2023-05-10 10:15] LABS: Erythrocyte Sedimentation Rate 13 MM/HR (0-20)
[2023-05-10 10:24] LABS: Rheumatoid Factor < 8.6 IU/mL (<12.0)
== END ==
PROVIDERS: PCP Student in an Organized Health Care Education/Training Program; Referring Provider Student in an Organized Health Care Education/Training Program; Visit Provider Student in an Organized Health Care Education/Training Program
DX: Z13.828 Encounter for screening for other musculoskeletal disorder (principal); M25.559 Pain in unspecified hip; R53.83 Other fatigue; Z13.29 Encounter for screening for other suspected endocrine disorder; Z13.89 Encounter for screening for other disorder; Z13.220 Encounter for screening for lipoid disorders
CPT/HCPCS: 36415; 73522; 80053; 84443; 85025; 85651; 86140; 86430